=== PATIENT | female | born 1980 | race Caucasian/White ===

== ENCOUNTER 2019-12-26 10:09 | Emergency (ER) | payer OTHER, SELFPAY ==
[2019-12-26 10:13] VITALS: BP 122/83; PULSE 77; RESP 14; TEMP 36.6; O2SAT 100
--- NOTE | 2019-12-26 10:23 | ED.GENADULT ---
HPI - General Adult General Chief complaint: Abdominal Pain Stated complaint: Abdominal pain Time Seen by Provider: 12/26/19 10:23 Source: patient and RN notes reviewed Mode of arrival: ambulatory Limitations: no limitations History of Present Illness HPI narrative: 39-year-old female presents with complaints of left lower abdomen pain for 1 day. Ibuprofen (800mg, last this morning at 04:30) with little relief. No significant pelvic pain. No vaginal discharge except vaginal bleeding related to her menstrual cycle. [place] says she is cramping and passing more clots this menstrual cycle. Changing her tampon (super size) every 2-2.5 hours today and yesterday it was every 1.5 hours yesterday. 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 No concerns for STDs. No fever or chills. No nausea, vomiting, or diarrhea. No flank pain. Exacerbating factors consist menstrual cycle. Denies dysuria, hematuria, and constipation. No blood in stool or constipation. Last BM was 12/25/19, normal. History of LT ovarian cyst per [place]. No cough or dyspnea. Denies chest pain, back pain, headache, and dizziness. Urine out put with in normal limits. The patient reports she have not been diagnosed with COVID-19. The patient reports she is not waiting for results of a COVID-19 lab test. The patient reports she do not have a fever, chills, weakness, fatigue, myalgia, or facial swelling. The patient reports she do not have a new or worsening cough or shortness of breath. Denies chest pain. The patient reports she do not have any rhinorrhea, congestion, sore throat, nausea, vomiting, or diarrhea. Tolerating po intake well. Denies recent traveling. Denies concerns for COVID-19 or exposures been home since [id number] order, has been home except for today for 1 full month. At this time, patient is not suspected of having COVID-19. Some parts of this dictation were generated by voice recognition software and may contain typographical and/or grammatical inaccuracies. Related Data Home Medications Medication Instructions Recorded Confirmed No Home Medications 12/26/19 12/26/19 Allergies Allergy/AdvReac Type Severity Reaction Status Date / Time Sulfa (Sulfonamide Allergy Intermediate Rash Verified 12/26/19 10:20 Antibiotics) Review of Systems Review of Systems: Narrative: CONSTITUTIONAL: Denies fever, chills, sweats. EYES: Denies visual changes, redness, discharge. ENT: Denies rhinorrhea, congestion, sore throat, otalgia. CARDIOVASCULAR: Denies chest pain, palpitations, edema. RESPIRATORY: Denies dyspnea, wheezing, cough. GASTROINTESTINAL: Denies vomiting, diarrhea, nausea, and decrease appetite. Complains of left lower abdominal pain. GENITOURINARY: Denies dysuria, hematuria, abnormal discharge. SKIN: Denies rash or itching. MUSCULOSKELETAL: Denies acute back pain, joint pain, or myalgia. NEUROLOGIC: Denies numbness or focal weakness. PSYCHIATRIC: Denies anxiety or depression. All systems reviewed & are unremarkable except as noted in HPI and below. [facility] Past Medical History Medical History (Updated 12/26/19 @ 10:41 by CARY Bazzi) Left ovarian cyst Surgical History Surgical History (Updated 12/26/19 @ 11:16 by CARY Bazzi) History of kidney surgery re-route of ureter Family History Family History (Updated 12/26/19 @ 11:16 by CARY Bazzi) Father Lung cancer Mother Alive and well Social History Social History (Updated 12/26/19 @ 10:36 by CARY Bazzi) Smoking packs per day: 0.25 Smoking cigarettes per day: 5.0 Years smoked: 10 Smoking pack-years: 2.50 Smoking status: Current every day smoker Tobacco type: cigarettes Alcohol intake: current Substance use: never Living arrangements: with family Gender identity (if verbalized by the patient): Female Comments At time of signature, agree with nurse past medical, surgical
--- NOTE | 2019-12-26 10:40 | PC.NURSE ---
1036-- TYLENOL 1000 MG PO ADMINISTERED TO PATIENT. MAR NOT ALLOWING DOCUMENTATION AT THIS TIME.
== END 2019-12-26 10:48 | disposition home or self-care (01) ==
PROVIDERS: Emergency Provider Nurse Practitioner Family; PCP Physician Assistant
DX: N94.6 Dysmenorrhea, unspecified (principal); F17.210 Nicotine dependence, cigarettes, uncomplicated
CPT/HCPCS: 99212; G0463